=== PATIENT | male | born 1940 | race Caucasian/White ===

== ENCOUNTER 2025-04-14 09:28 | Day surgery (SDC) | payer OTHER, BC ==
[2025-04-09 13:57] VITALS: BMI 27.3
[2025-04-14] MEDS ORDERED: MIDAZOLAM HCL 2 MG/2 ML SINGLE DOSE VIAL ONE (09:58)
[2025-04-14] MEDS: TROPICAMIDE 1% OPHTH SOLN 15 ML BOTTLE ONE (10:05)
[2025-04-14] MEDS: PHENYLEPHRINE 2.5% OPTHALMIC DROP 2ML BOTTLE ONE (10:05)
[2025-04-14] MEDS: CIPROFLOXACIN 0.3% EYE DROPS 5 ML BOTTLE ONE (10:05)
[2025-04-14] MEDS: CYCLOPENTOLATE 2% OPHTH SOLN 2 ML BOTTLE ONE (10:05)
[2025-04-14] MEDS ORDERED: NEO/POLYMYX B SULF/DEXAMETH OPHTHALMIC 5ML BOTTLE ONE (10:35)
[2025-04-14] MEDS ORDERED: CARBACHOL 0.01% INTRA-OCULAR 1.5 ML VIAL ONE (10:35)
[2025-04-14] MEDS ORDERED: EPINEPHrine 1:1000 P/F - 1 MG/ML AMP ONE (10:35)
[2025-04-14] MEDS ORDERED: TETRACAINE 0.5% OPHTH SOLN 2 ML BOTTLE ONE (10:35)
[2025-04-14] MEDS ORDERED: LIDOCAINE 1% P/F 10 MG/ML VIAL ONE (10:35)
[2025-04-14] MEDS ORDERED: BSS (NA/CA/MG/K) BALANCED SALT SOLUTION OPHTH SOLN 15 ML BOTTLE ONE (10:35)
[2025-04-14 13:27] VITALS: BP 117/67; PULSE 67; RESP 17; TEMP 97.2
== END 2025-04-14 13:21 | disposition home or self-care (01) ==
LOC: FASU 09:28
PROVIDERS: ATTEND Ophthalmology
PROC: 08RK3JZ Replacement of Left Lens with Synthetic Substitute, Percutaneous Approach (ICD-10-PCS; principal; 2025-04-14 11:06)
DX: H26.8 Other specified cataract (principal)
CPT/HCPCS: 66984; V2632